=== PATIENT | female | born 1950 | race American Indian/Alaskan Native ===

== ENCOUNTER 2016-11-02 08:31 | Day surgery (SDC) | payer MEDICARE, OTHER ==
--- NOTE | ~2016-11-02 | EGD ---
EGD REPORT [facility] [address] [id number] NAME: SAMUEL MCLAIN : 52 STATUS : REG [facility]#: [id number] AGE: 66 ADM/REG DATE : 11/02/16 MR#: [id number] REPORT SERV DATE: 11/02/16 DICTATED BY: ETHEL LATHAM DATE: 11/02/16 REPORT STATUS : Draft TRANSCRIBED BY: [facility] DATE: 11/02/16 Endoscopy Center Patient Name: Samuel Mclain Date of : 1950 Attending MD: ETHEL LATHAM MD Procedure Date No Time: 11/02/2016 Procedure: Colonoscopy Indications: Colon cancer screening in patient at increased risk: Family history of colon polyps Referring MD: MARS VELASQUEZ JR. Medicines: as per anesthesia Complications: No immediate complications. Procedure: Pre-Anesthesia Assessment: - ASA Grade Assessment: II - A patient with mild systemic disease. After I obtained informed consent, the scope was passed under direct vision. Throughout the procedure, the patient's blood pressure, pulse, and oxygen saturations were monitored continuously. The PCF [id number] was introduced through the anus and advanced to the cecum, identified by appendiceal orifice and ileocecal valve. The colonoscopy was somewhat difficult due to significant looping and a tortuous colon. The patient tolerated the procedure. The quality of the bowel preparation was adequate to identify polyps. Findings: The perianal and digital rectal examinations were normal. A few small and large-mouthed diverticula were found in the sigmoid colon and in the descending colon. Internal hemorrhoids were found during endoscopy and were mild. Impression: - Diverticulosis in the sigmoid colon and in the descending colon. - Internal hemorrhoids. Recommendation: - Repeat colonoscopy in 5 years for surveillance. Procedure Code(s): --- Professional --- 71728, Colonoscopy, flexible, proximal to splenic flexure; diagnostic, with or without collection of specimen(s) by brushing or washing, with or without colon decompression (separate procedure) Diagnosis Code(s): --- Professional --- EGD REPORT [facility] [address] [address] NAME: SAMUEL MCLAIN : 52 STATUS : [facility] [id number] AGE: 66 ADM/REG DATE : 11/02/16 MR#: [id number] REPORT SERV DATE: 11/02/16 DICTATED BY: ETHEL LATHAM. DATE: 11/02/16 REPORT STATUS : Draft TRANSCRIBED BY: [employer] DATE: 11/02/16 K64.8, Other hemorrhoids K57.30, Diverticulosis of large intestine without perforation or abscess without bleeding Z12.11, Encounter for screening for malignant neoplasm of colon Z83.71, Family history of colonic polyps CPT copyright 2013 [employer]. All rights reserved. The codes documented in this report are preliminary and upon cpc coder review may be revised to meet current compliance requirements. ETHEL LATHAM MD 11/02/2016 11:22 AM This report has been signed electronically. Number of Addenda: 0 Note Initiated On: 11/02/2016 9:54 AM Scope Withdrawal Time 0 hours 6 minutes 24 seconds [id number] [facility] [place] [address]
[~2016-11-02 08:31] MED LIST: ADALAT CC60 MG PO; CALTRA600D PO; FLEX PO; FORTEO IM/SC; IMU PO; KLOR-CON 1010 MEQ PO; MAGNESIUM PO; MELATONIN10 M2 PO; MULTIPLE VIT PO; NEUR800 PO; PROTONIX PO; RANITIDINE300 MG PO; REQUIP1 PO; VITAMIN B-121000 MC1 SL; ZOVI800 PO
== END 2016-11-02 23:59 | disposition home or self-care (01) ==
LOC: DMU 08:31
PROVIDERS: Internal Medicine Gastroenterology
PROC: 0DJD8ZZ Inspection of Lower Intestinal Tract, Via Natural or Artificial Opening Endoscopic (ICD-10-PCS; principal; 2016-11-02 09:30)
DX: Z12.11 Encounter for screening for malignant neoplasm of colon (principal); K64.8 Other hemorrhoids; K57.30 Diverticulosis of large intestine without perforation or abscess without bleeding; M79.7 Fibromyalgia; I10 Essential (primary) hypertension; Z88.8 Allergy status to other drugs, medicaments and biological substances; Z79.52 Long term (current) use of systemic steroids; Z83.71 Family history of colonic polyps; Z79.899 Other long term (current) drug therapy; Z96.653 Presence of artificial knee joint, bilateral; Z98.890 Other specified postprocedural states; Z90.49 Acquired absence of other specified parts of digestive tract; Z98.84 Bariatric surgery status